=== PATIENT | male | born 1985 | race Hispanic/Latino ===

== ENCOUNTER 2021-12-12 12:32 | Emergency (ER) | payer SELFPAY ==
[~2021-12-12] VITALS: Ht 172.7 cm; Wt 80.3 kg
[2021-12-12] MEDS ORDERED: KETOROLAC TROMETHAMINE 30 MG/ML VIAL IV STA (13:01)
[2021-12-12] MEDS ORDERED: SODIUM CHLORIDE 0.9% 1000ML 1,000 ML IV ONE (13:15)
[2021-12-12] MEDS ORDERED: DIPHENHYDRAMINE HCL INJ 50 MG/ML VIAL IV ONE (13:15)
[2021-12-12] MEDS ORDERED: METOCLOPRAMIDE HCL 10 MG/2ML VIAL IV ONE (13:15)
[2021-12-12] MEDS ORDERED: FIORICET 50-301 EACH PO (16:18)
== END 2021-12-12 16:55 | disposition home or self-care (01) ==
LOC: ER 13:02
DX: G43.909 Migraine, unspecified, not intractable, without status migrainosus (principal)
CPT/HCPCS: 70450; 72125; 99284